=== PATIENT | male | born 1970 | race Caucasian/White ===

== ENCOUNTER 2022-03-13 15:28 | Outpatient (CLI) | payer OTHER, SELFPAY ==
--- NOTE | 2022-03-13 15:45 | XR_ITS ---
WS: [id number] Exam: XR lumbar spine 2-3V* [id number] Date/Time of Exam: 03/13/2022 3:47 PM Reason For Exam: BACK PAIN No fracture or dislocation. Disc spaces are relatively well maintained. Mild spondylosis. Posterior e lements are intact. XR/XR lumbar spine 2-3V* [id number] IMPRESSION: 1. Mild spondylosis. No fracture or malalignment.
--- NOTE | 2022-03-13 15:45 | XR_ITS ---
WS: [id number] Exam: XR cervical spine 3V* [id number] Date/Time of Exam: 03/13/2022 3:47 PM Reason For Exam: NECK PAIN No fracture or dislocation. There is straightening. Disc spaces are preserved. Minimal facet DJD. Nor mal paraspinal soft tissues. The odontoid is intact. XR/XR cervical spine 3V* 92200 IMPRESSION: 1. No fracture or malalignment. 2. Straightening of the C-spine and minimal degenerative changes.
--- NOTE | 2022-03-13 15:45 | XR_ITS ---
WS: [id number] Exam: XR shoulder LT min 2V* [id number] Date/Time of Exam: 03/13/2022 3:47 PM Reason For Exam: LEFT SHOULDER PAIN The projections of the shoulder reveal no fractures, anomalies, soft tissue swelling, or calcificatio ns. There is normal bony alignment. No irregularity of the bony architecture is noted. XR/XR shoulder LT min 2V* [id number] IMPRESSION: Negative left shoulder.
== END 2022-03-13 15:29 | disposition home or self-care (01) ==
LOC: RAD 15:34
PROVIDERS: Visit Provider Dermatology
DX: Z02.71 Encounter for disability determination (principal); M54.2 Cervicalgia; M54.9 Dorsalgia, unspecified; M25.512 Pain in left shoulder; M47.816 Spondylosis without myelopathy or radiculopathy, lumbar region
CPT/HCPCS: 72040; 72100; 73030